=== PATIENT | male | born 1955 | race Caucasian/White ===

== ENCOUNTER → 2017-09-29 | Outpatient (CLI) | payer OTHER | LOC: M.WC 10:00 | DX: E11.621 Type 2 diabetes mellitus with foot ulcer (principal); L97.521 Non-pressure chronic ulcer of other part of left foot limited to breakdown of skin; L03.125 Acute lymphangitis of right lower limb; F32.9 Major depressive disorder, single episode, unspecified ==

== ENCOUNTER → 2017-10-06 | Outpatient (CLI) | payer OTHER | LOC: M.WC 01:38 | DX: E11.621 Type 2 diabetes mellitus with foot ulcer (principal); L97.521 Non-pressure chronic ulcer of other part of left foot limited to breakdown of skin; L03.125 Acute lymphangitis of right lower limb; F32.9 Major depressive disorder, single episode, unspecified ==

== ENCOUNTER → 2017-10-13 | Outpatient (CLI) | payer OTHER | LOC: M.WC 01:46 | DX: E11.621 Type 2 diabetes mellitus with foot ulcer (principal); L97.521 Non-pressure chronic ulcer of other part of left foot limited to breakdown of skin; L03.125 Acute lymphangitis of right lower limb; F32.9 Major depressive disorder, single episode, unspecified ==

== ENCOUNTER → 2017-10-20 | Outpatient (CLI) | payer OTHER | LOC: M.WC 00:05 | DX: E11.621 Type 2 diabetes mellitus with foot ulcer (principal); L97.521 Non-pressure chronic ulcer of other part of left foot limited to breakdown of skin; L03.126 Acute lymphangitis of left lower limb; E78.2 Mixed hyperlipidemia; L84 Corns and callosities; F33.1 Major depressive disorder, recurrent, moderate; Z68.35 Body mass index [BMI] 35.0-35.9, adult ==

== ENCOUNTER → 2017-10-27 | Outpatient (CLI) | payer OTHER | LOC: M.WC 00:03 | DX: E11.621 Type 2 diabetes mellitus with foot ulcer (principal); L97.521 Non-pressure chronic ulcer of other part of left foot limited to breakdown of skin; L03.126 Acute lymphangitis of left lower limb; E78.2 Mixed hyperlipidemia; F33.1 Major depressive disorder, recurrent, moderate; Z68.35 Body mass index [BMI] 35.0-35.9, adult ==

== ENCOUNTER → 2020-01-27 | Outpatient (CLI) | payer BC | LOC: M.CT 09:43 | PROVIDERS: ATTEND Nurse Practitioner Family | DX: Z13.6 Encounter for screening for cardiovascular disorders (principal); I25.10 Atherosclerotic heart disease of native coronary artery without angina pectoris ==